=== PATIENT | male | born 1965 | race American Indian/Alaskan Native ===

== ENCOUNTER 2017-03-05 21:33 | Emergency (ER) | payer MEDICAID ==
[2017-03-05 22:31] VITALS: BP 123/78
[2017-03-05 22:59] LABS: Basophils % (Auto) 0.5 % (0.0-1.8); Eosinophils % (Auto) 3.9 % (0.0-4.3); Hematocrit 42.4 % (35.5-45.6); Hemoglobin 14.2 gm/dl (11.8-15.2); Mean Corpuscular HGB Conc 33 % (32-34); Mean Corpuscular Hemoglobin 30 pg (28-32); Mean Corpuscular Volume 89 fl (84-94); Platelet Count 188 K/mm3 (140-440); Red Blood Count 4.74 M/mm3 (3.65-5.03); Red Cell Distribution Width 15.1 % (13.2-15.2); White Blood Count 11.7 K/mm3 (4.5-11.0)
[2017-03-05 23:23] LABS: Anion Gap 19 mmol/L; Blood Urea Nitrogen 8 mg/dL (9-20); Carbon Dioxide 21 mmol/L (22-30); Chloride 100.9 mmol/L (98-107); Glucose 209 mg/dL (75-100); Potassium 3.6 mmol/L (3.6-5.0); Sodium 137 mmol/L (137-145)
[2017-03-05 23:44] LABS: Urine Drugs of Abuse Note Disclamer
[2017-03-06 00:08] LABS: Bilirubin,Urine NEG (Negative); Blood,Urine NEG (Negative); Ketones,Urine NEG (Negative); Leukocyte Esterase,Urine NEG (Negative); Mucus,Urine FEW /HPF; Nitrite,Urine NEG (Negative); Sperm,Urine FEW /HPF (NP); Urobilinogen,Urine < 2.0 mg/dL (<2.0)
== END 2017-03-06 02:45 | disposition left against medical advice (07) ==
LOC: ED 21:33
DX: Z04.3 Encounter for examination and observation following other accident (principal); Z53.21 Procedure and treatment not carried out due to patient leaving prior to being seen by health care provider; Y08.89XA Assault by other specified means, initial encounter; Y93.89 Activity, other specified; Y99.8 Other external cause status; Y92.89 Other specified places as the place of occurrence of the external cause
CPT/HCPCS: 36415; 80048; 80307; 81001; 85025; G0480; 80320

== ENCOUNTER 2021-06-01 07:34 | Emergency (ER) | payer MEDICAID ==
--- NOTE | 2021-06-01 08:08 | Event Note ---
ED Screening Note Date of service: 06/01/21 Time: 08:06 ED Screening Note: 56-year-old -Bul[place] male comes in reporting that he took a lots of pills and just wanted to permanently go to sleep. Patient states he suffers from pain hypertension headache. Patient did bring a bag of his medications in. This initial assessment/diagnostic orders/clinical plan/treatment(s) is/are subject to change based on patients health status, clinical progression and re- assessment by fellow clinical providers in the ED. Further treatment and workup at subsequent clinical providers discretion. Patient/guardian urged not to elope from the ED as their condition may be serious if not clinically assessed and managed. Initial orders include: Psych protocol initiated
[2021-06-01 09:27] LABS: Basophils % (Auto) 0.5 % (0.0-1.8); Eosinophils # (Auto) 0.5 K/mm3 (0.0-0.4); Eosinophils % (Auto) 5.3 % (0.0-4.3); Hematocrit 42.3 % (35.5-45.6); Hemoglobin 14.4 gm/dl (11.8-15.2); Lymphocytes # (Auto) 2.9 K/mm3 (1.2-5.4); Lymphocytes % (Auto) 33.9 % (13.4-35.0); Mean Corpuscular HGB Conc 34 % (32-34); Mean Corpuscular Volume 89 fl (84-94); Monocytes # (Auto) 0.5 K/mm3 (0.0-0.8); Monocytes % (Auto) 5.5 % (0.0-7.3); Platelet Count 214 K/mm3 (140-440); Red Blood Count 4.73 M/mm3 (3.65-5.03); Red Cell Distribution Width 14.4 % (13.2-15.2)
[2021-06-01 09:45] LABS: Alanine Aminotransferase 38 units/L (7-56); Albumin 4.3 g/dL (3.9-5); BUN/Creatinine Ratio 16; Blood Urea Nitrogen 16 mg/dL (9-20); Calcium 9.2 mg/dL (8.4-10.2); Hemolysis Index 5
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
[2021-06-01 11:37] LABS: Bilirubin,Urine NEG (Negative); Blood,Urine NEG (Negative); Color,Urine Yellow (Yellow); Hyaline Casts,Urine 1 /LPF; Mucus,Urine FEW /HPF; Urobilinogen,Urine < 2.0 mg/dL (<2.0)
[2021-06-01 11:50] LABS: Benzodiazepines Screen,Urine Negative; Cannabinoid Screen,Urine Negative; Methadone Screen,Urine Negative; Opiate Screen,Urine Negative
[2021-06-01 12:05] LABS: Amphetamine Screen,Urine Positive; Cocaine Screen,Urine Positive
--- NOTE | 2021-06-01 15:50 | Emergency Department Report ---
Blank Doc - Documentation Documentation: [id number] assumed care with labs pending. Poison control wanted repeat Tylenol l evel. If that is normal, the patient would be medically cleared completely and we would be awaiting psych disposition. Labs of been noted. Patient is now medically cleared pending psychiatric dispo sition
[2021-06-01 16:01] LABS: Alanine Aminotransferase 37 units/L (7-56); Albumin 4.1 g/dL (3.9-5)
[2021-06-01 16:02] LABS: Bilirubin,Direct < 0.2 mg/dL (0-0.2)
[2021-06-01] MEDS ORDERED: hydrOXYzine HCL 25 MG TAB PO PRN (19:09)
[2021-06-01] MEDS ORDERED: traZODone 100 MG TAB PO SCH (22:00)
[2021-06-01] MEDS ORDERED: NON-FORMULARY EACH (Metformin Hcl [Metformin] 1,000 MG Tablet) PO SCH (22:00)
[2021-06-02] MEDS ORDERED: metFORMIN 500 MG TAB PO SCH (08:00)
[2021-06-02] MEDS ORDERED: EFAVIRENZ 200 MG CAP PO SCH (10:00)
[2021-06-02] MEDS ORDERED: CETIRIZINE 10 MG TAB PO SCH (10:00)
[2021-06-02] MEDS ORDERED: EMTRICITABINE 200 MG CAP PO SCH (10:00)
[2021-06-02] MEDS ORDERED: TENOFOVIR 300 MG TAB PO SCH (10:00)
[2021-06-02] MEDS ORDERED: amLODIPine 5 MG TAB PO SCH (10:00)
[2021-06-02] MEDS ORDERED: [UNRECOGNIZED DRUG - OTHER] PO SCH (10:00)
[2021-06-02] MEDS ORDERED: NON-FORMULARY EACH (Loratadine (Nf) 10 MG Tablet) PO SCH (10:00)
[2021-06-02] MEDS ORDERED: LISINOPRIL 10 MG TAB PO SCH (10:00)
--- NOTE | 2021-06-02 10:32 | XRay Report ---
Right shoulder-3 views INDICATION: worsening pain. COMPARISON: None. IMPRESSION: No acute osseous abnormality. Soft tissues are normal. Normal alignment. No significa nt DJD. Signer Name: Morales Cook MD Signed: 06/02/2021 10:28 AM Workstation Name: [id number]
--- NOTE | 2021-06-02 10:32 | XRay Report ---
Cervical spine-3 views INDICATION: worsening pain. COMPARISON: None. IMPRESSION: Normal alignment. Mild multilevel discogenic DJD. No acute osseous or soft tissue abno rmality. Signer Name: Morales Cook MD Signed: 06/02/2021 10:27 AM Workstation Name: [id number]
--- NOTE | 2021-06-02 10:39 | Progress Note ---
Subjective - Reason for Consult Consult date: 06/02/21 Reason for consult: SA - Chief Complaint Chief complaint: The patient was seen this morning resting quietly in the room. The patient denies trying to kill himself. He denies any current suicidal/homicidal ideation and denies hallucinations. REVIEW OF SYSTEMS Constitutional: Negative for weight loss ENT: Negative for stridor Respiratory: Negative for cough or hemoptysis All other systems reviewed and are negative MENTAL STATUS EXAMINATION General Appearance and Behavior: Age appropriate, good hygiene, wearing appropriate clothes, good eye contact, cooperative polite with questioning. Cooperation: Participating/engaged Psychomotor Behavior: unremarkable and within normal limits Mood: "OK" Affect and affective range: congruent with mood Thought Process: goal directed Thought Content: Not suicidal Speech: Normal volume, Regular rate and rhythm Intellectual Functioning: Average Suicidal Ideation: Denies Homicidal Ideation: Denies Hallucinations: Denies Impulse Control: Unimpaired Insight and Judgment: Normal insight and poor judgment Memory: Normal Attention: Divided Orientation: Alert, oriented Assessment and Plan (1) Schizophrenia Current Visit: Yes Status: Acute F20.9 RECOMMENDATIONS DC 1013 Risks, benefits and alternatives of medications discussed with the patient, questions answered and consent obtained from patient. PSYCHOTHERAPY: Supportive psychotherapy provided MEDICAL: Per primary team DELIRIUM PRECAUTIONS: Please re-orient patient frequently, keep lights on during the day, and minimize benzodiazepines and opiates as these medications could worsen patient's confusion. 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 The patient understands that if suicidal/homicidal ideation or any endangering thoughts/behavior arise, he should immediately seek for emergent assistance including but not limited to crisis hot line and emergency room. Follow up with outpatient psychiatrist and PCP within 7- 14 days of discharge. [facility] will provide the patient with safety plan and outpatient resources. FOLLOW-UP: Will sign off. Thank you for the consult. Please contact with any questions and/or concerns. FOLLOW-UP: Will follow Thank you for the consult. Please contact with any questions and/or concerns. Medications and Allergies Mental Status Exam - Vital signs Last Vital Signs Temp 97.8 F 06/02/21 08:43 Pulse 71 06/02/21 08:43 Resp 18 06/02/21 08:43 BP 145/84 06/02/21 08:43 Pulse Ox 99 06/02/21 08:43
[2021-06-02 10:43] VITALS: BP 146/86
--- NOTE | 2021-06-02 12:02 | Emergency Department Report ---
Blank Doc - Documentation Documentation: Radiographs are noted. Patient was cleared by psychiatric services. He was not felt to be an imminent harm. He was subsequently discharged.
--- NOTE | 2021-06-02 13:05 | Electrocardiograph Report ---
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
== END 2021-06-02 12:20 | disposition home or self-care (01) ==
LOC: ED 07:34 → EEVIPCON 07:34 → ED 06-02 12:20
DX: T40.422A Poisoning by tramadol, intentional self-harm, initial encounter (principal); M25.511 Pain in right shoulder; F14.10 Cocaine abuse, uncomplicated; F15.10 Other stimulant abuse, uncomplicated; B20 Human immunodeficiency virus [HIV] disease; E11.8 Type 2 diabetes mellitus with unspecified complications; Z13.30 Encounter for screening examination for mental health and behavioral disorders, unspecified; I11.0 Hypertensive heart disease with heart failure; Z98.890 Other specified postprocedural states; F17.200 Nicotine dependence, unspecified, uncomplicated; Z88.6 Allergy status to analgesic agent; Z91.041 Radiographic dye allergy status; Y92.89 Other specified places as the place of occurrence of the external cause
CPT/HCPCS: 36415; 72040; 73030; 80053; 80076; 80307; 81001; 82962; 83735; 85025; 93005; 99285; A9270; 80320; G0480

== ENCOUNTER → 2021-10-01 | Emergency (ER) | payer MEDICAID ==
[~2021-10-01] MED LIST: ONDANSETRON 4 MG ODT TAB PO ONE; oxyCODONE /ACETAMINOPHEN 5-325MG TAB PO ONE
[2021-10-01 16:18] VITALS: BP 145/96
== END ==
LOC: ED 16:15
DX: Z04.1 Encounter for examination and observation following transport accident (principal); Z53.21 Procedure and treatment not carried out due to patient leaving prior to being seen by health care provider; X58.XXXA Exposure to other specified factors, initial encounter; Y93.89 Activity, other specified; Y92.89 Other specified places as the place of occurrence of the external cause; Y99.8 Other external cause status